=== PATIENT | male | born 1985 | race Caucasian/White ===

== ENCOUNTER 2018-04-20 12:33 | Emergency (ER) | payer BC, MEDICAID ==
[~2018-04-20] VITALS: Ht 167.6 cm; Wt 76.0 kg
[~2018-04-20 12:33] MED LIST: HYDR-4383 PO; IBUP-1984 PO; PSEU-259 PO
[2018-04-20] MEDS ORDERED: TETanus/Pertussis (Acell)/Diphther VAC/PF (Tdap-Adult) 0.5ml syringe IMVAC ONE (12:55)
[2018-04-20 13:35] VITALS: BP 122/76
== END 2018-04-20 13:40 | disposition home or self-care (01) ==
LOC: ER 12:33
DX: S61.211A Laceration without foreign body of left index finger without damage to nail, initial encounter (principal); G89.29 Other chronic pain; Z79.899 Other long term (current) drug therapy; W26.0XXA Contact with knife, initial encounter; Y93.89 Activity, other specified; Y92.89 Other specified places as the place of occurrence of the external cause; Y99.8 Other external cause status
CPT/HCPCS: 12001; 90471; 90715; 99283

== ENCOUNTER 2023-09-02 14:54 | Emergency (ER) | payer BC, SELFPAY ==
[~2023-09-02] VITALS: Ht 167.6 cm; Wt 87.6 kg
[2023-09-02 15:04] VITALS: BP 206/122; PULSE 86; TEMP 97.8; O2SAT 98
[2023-09-02 15:46] VITALS: RESP 16
== END 2023-09-02 15:47 | disposition home or self-care (01) ==
LOC: ER 14:55
DX: S63.617A Unspecified sprain of left little finger, initial encounter (principal); G89.29 Other chronic pain; M54.9 Dorsalgia, unspecified; Z79.1 Long term (current) use of non-steroidal anti-inflammatories (NSAID); Z79.899 Other long term (current) drug therapy; X58.XXXA Exposure to other specified factors, initial encounter; Y93.89 Activity, other specified; Y92.89 Other specified places as the place of occurrence of the external cause; Y99.8 Other external cause status
CPT/HCPCS: 73140; 99283